=== PATIENT | female | born 1965 | race Caucasian/White ===

== ENCOUNTER 2016-09-20 10:06 | Outpatient (RCR) | payer OTHER ==
[~2016-09-20 10:06] MED LIST: ACTIGALL 300MG300 MG PO; HCTZ 25MG TAB25 MG PO; LEVAQUIN 5500 MG/TA1 PO; LIDODERM PATCH TP; NEURONTIN600 MG/TAB PO; NORCO 325 MG-7.1 TAB PO; PERCOCET 325 MG1 TA2 PO; PERCOCET 500 MG1 TAB PO; PREDNISONE10 MG PO; PRILOSEC 20MG20 MG PO; ZANTAC 150MG T150 MG PO
== END 2016-12-19 | disposition still patient (30) ==
LOC: WSOH
DX: M54.41 Lumbago with sciatica, right side (principal); M51.27 Other intervertebral disc displacement, lumbosacral region; M48.06 Spinal stenosis, lumbar region; Z98.84 Bariatric surgery status

== ENCOUNTER → 2018-06-19 | Outpatient (CLI) | payer MEDICAID | LOC: MHCPAIN 14:26 | DX: G89.29 Other chronic pain (principal); M47.817 Spondylosis without myelopathy or radiculopathy, lumbosacral region; M54.16 Radiculopathy, lumbar region; M53.3 Sacrococcygeal disorders, not elsewhere classified; M96.1 Postlaminectomy syndrome, not elsewhere classified | CPT/HCPCS: G0463 ==

== ENCOUNTER 2018-08-05 14:55 | Inpatient (IN) | payer MEDICAID ==
[~2018-08-05] VITALS: Ht 162.6 cm; Wt 99.5 kg
[2018-08-05 16:29] LABS: HEMOGLOBIN 11.2 g/dl (12.5-16.0); MEAN CELL VOLUME 100 fl (80.0-100.0); MEAN CORPUSCULAR HEMOGLOBIN 32 pg (27.0-31.0); MEAN CORPUSCULAR HGB CONC 32 g/dl (33.0-37.0); PLATELET COUNT 693 K/mm3 (130-400); RED BLOOD COUNT 3.52 M/mm3 (4.10-5.30); REDCELL DISTRIBUTION WIDTH-CV 13.7 % (11.5-14.5)
[2018-08-05 16:30] LABS: HEMATOCRIT 35.1 % (37.0-47.0)
[2018-08-05 16:40] LABS: ALANINE AMINOTRANSFERASE 16 U/L (9-52); ALBUMIN 3.7 gm/dL (3.5-5.0); ALKALINE PHOSPHATASE 103 U/L (50-136); ANION GAP 11 mmol/L (7-16); AST,SGOT 54 U/L (15-37); BILIRUBIN,TOTAL 0.2 mg/dL (0.0-1.0); BLOOD UREA NITROGEN 17 mg/dL (7-17); CALCIUM 9.5 mg/dL (8.4-10.2); CARBON DIOXIDE 25 mmol/L (22-30); CHLORIDE 107 mmol/L (98-107); CREATININE, serum 0.67 (0.52-1.25); GLUCOSE 88 mg/dL (74-106); POTASSIUM 3.4 mmol/L (3.4-5.0); SODIUM 143 mmol/L (137-145)
[2018-08-05 16:47] LABS: ANISOCYTOSIS 1+; BAND 3 % (0-10); EOSINOPHIL 2 % (0-4); LYMPHOCYTE 33 % (20.0-51.0); NEUTROPHILS 57 % (42.0-75.2); PLATELET ESTIMATE INCREASED (NORMAL)
[2018-08-05 16:52] LABS: TROPONIN-I < 0.012 ng/mL (0.000-0.035)
[2018-08-05] MEDS ORDERED: HCTZ12.5TAB PO (20:36)
[2018-08-05] MEDS ORDERED: TOPAMAX50 MG PO (20:37)
[2018-08-05] MEDS ORDERED: PROTONIX 40MG T40 MG PO (20:37)
[2018-08-05] MEDS ORDERED: COMPAZINE 110 MG/TAB PO (20:39)
[2018-08-05] MEDS ORDERED: NEURONTIN300 MG/CAP PO (20:39)
[2018-08-05] MEDS ORDERED: FLEXERIL 1010 MG/TAB PO (20:40)
[2018-08-05] MEDS ORDERED: LIPOFEN150 MG PO (20:40)
[2018-08-05] MEDS ORDERED: LIPITOR 40MG TA40 MG PO (20:42)
[2018-08-05] MEDS ORDERED: DESYREL 100MG100 MG PO (20:43)
[2018-08-05] MEDS ORDERED: CELEBREX 200MG200 MG PO (20:43)
[2018-08-05] MEDS ORDERED: EFFEXOR-XR150 MG PO (20:43)
[2018-08-05] MEDS ORDERED: TYLENOL 500MG500 MG PO (20:45)
[2018-08-05] MEDS ORDERED: TUSS PO (20:46)
[2018-08-05] MEDS ORDERED: NICODERM C21 MG/PATC TD (20:47)
[2018-08-05] MEDS ORDERED: WELLBUTRIN 75MG75 MG PO (20:47)
[2018-08-05] MEDS ORDERED: PROAIR HFA0.09 MG/AC IH (20:48)
[2018-08-05] MEDS ORDERED: 00186-0370-20 IH (20:48)
[2018-08-05] MEDS ORDERED: PREDNISONE10 MG PO (20:52)
--- NOTE | 2018-08-05 21:00 | NUR ---
Admitted to medical floor from ER with dx: ANNE MARIE herrera,, Justina WEN here to see pt, pt states pain 11/02--will give pain meds as ordered, VSS, IV fluids of NS at 125cc/hr, tele on. Up to bathroom on own- steady on feet.
[2018-08-05 21:17] VITALS: BP 130/75; PULSE 95; TEMP 98.7
[2018-08-05 22:51] LABS: ACETAMINOPHEN < 10 ug/mL (10-30); MAGNESIUM 2.4 mg/dL (1.6-2.3)
[2018-08-06 03:14] VITALS: BP 116/72; PULSE 104; TEMP 98.8
--- NOTE | 2018-08-06 05:40 | NUR ---
Did not sleep last night- sitting at edge of bed most of the night-has friend staying with her tonight, getting [place]/Dilaudid for left rib pain 11/02--sputum sent to lab, resp virus panel sent to lab also,, will be on Droplet isolation until results are back
[2018-08-06 06:22] LABS: HEMOGLOBIN 10.7 g/dl (12.5-16.0); MEAN CELL VOLUME 102 fl (80.0-100.0); MEAN CORPUSCULAR HEMOGLOBIN 32 pg (27.0-31.0); MEAN CORPUSCULAR HGB CONC 31 g/dl (33.0-37.0); MEAN PLATELET VOLUME 9.1 fl (7.4-10.4); PLATELET COUNT 637 K/mm3 (130-400); RED BLOOD COUNT 3.34 M/mm3 (4.10-5.30); REDCELL DISTRIBUTION WIDTH-CV 13.8 % (11.5-14.5)
[2018-08-06 06:25] LABS: HEMATOCRIT 34.2 % (37.0-47.0)
[2018-08-06 06:33] LABS: ALANINE AMINOTRANSFERASE 13 U/L (9-52); ALBUMIN 3.5 gm/dL (3.5-5.0); ALKALINE PHOSPHATASE 95 U/L (50-136); ANION GAP 10 mmol/L (7-16); AST,SGOT 22 U/L (15-37); BILIRUBIN,TOTAL < 0.1 mg/dL (0.0-1.0); BLOOD UREA NITROGEN 12 mg/dL (7-17); CALCIUM 8.8 mg/dL (8.4-10.2); CARBON DIOXIDE 26 mmol/L (22-30); CHLORIDE 107 mmol/L (98-107); CREATININE, serum 0.67 (0.52-1.25); GLUCOSE 101 mg/dL (74-106); POTASSIUM 3.9 mmol/L (3.4-5.0); SODIUM 142 mmol/L (137-145); TOTAL PROTEIN 6.7 gm/dL (6.4-8.2)
[2018-08-06 07:26] VITALS: BP 117/75; PULSE 92; TEMP 98
[2018-08-06 07:50] LABS: EOSINOPHIL 3 % (0-4); LYMPHOCYTE 33 % (20.0-51.0); NEUTROPHILS 55 % (42.0-75.2); PLATELET ESTIMATE INCREASED (NORMAL); POLYCHROMASIA 1+
[2018-08-06 07:51] LABS: STOMATOCYTE 1+
--- NOTE | 2018-08-06 08:04 | NUR ---
Received report from MAURO Solano.care assumed.
--- NOTE | 2018-08-06 09:55 | NUR ---
PRN DILAUDID AND PRN NORCO GIVEN TO RIB PAIN.PATIENT RATES PAIN AT 8/10.WILL CONTINUE TO MONITOR.CALL LIGHT IN REACH
[2018-08-06 11:41] VITALS: BP 123/79; PULSE 100; TEMP 98.3
--- NOTE | 2018-08-06 13:54 | NUR ---
HOSSEIN met with the patient and patient's step-daughter to discuss discharge plan. The patient lives in [place] with her son, Britton. She reports independence with ADLs and does not use any DME. The patient's PCP is Dr. Santana Montes and she receives her medications at the [facility] in [place]. She reports no difficulties obtaining her meds. The patient does not have advanced directives in EMR, but she states that she does have paperwork for it at home. The patient plans to return home upon discharge. No additional needs at this time.
[2018-08-06 15:48] VITALS: BP 125/76; PULSE 103; TEMP 98.4
--- NOTE | 2018-08-06 18:32 | NUR ---
AM ASSESSMENT COMPLETED AT APPROXIMATELY 0900. PATIENT SITTING UP IN BED EATING BREAKFAST. RPORTING LEFT SIDED CHEST PAIN FROM RIB FRACTURES. DENIES C/O SHORTNESS OF BREATHE. LUNG SOUNDS IN BILATERAL UPPER LOBES CTA. BILATERAL LOWER LOBES PRESENT WITH EXPIRATORY WHEEZING. MEDICATIONS ADMINISTERED ORDERED. DROPLET PRECAUTIONS IN PLACE PENDING RESPIRATORY PANEL RESULTS.
--- NOTE | 2018-08-06 18:37 | NUR ---
PATIENT CURRENTLY SITTING UP IN BED WATCHING TV. REQUESTING PAIN MEDICATION FOR C/O OF LEFT SIDED CHEST PAIN. MEDICATION PROVIDED. DENIES C/O OF SHORTNESS OF BREATHE OR OTHER COMPLAINTS. CONTINUED IN DROPLET PRECAUTIONS FOR RHINOVIRUS AND ENTEROVIRUS PER RESPIRATORY PANEL.
--- NOTE | 2018-08-06 18:50 | NUR ---
REPORT GIVEN TO MAURO KARIMI.
--- NOTE | 2018-08-06 18:50 | NUR ---
THIS RN REVIEWED MAURO CHEUTILITY WORKER FORGE AND AGREE WITH ABOVE FINDINGS.
[2018-08-06 19:15] VITALS: BP 140/74; PULSE 117; TEMP 98
--- NOTE | 2018-08-06 21:00 | NUR ---
pt resting in bed A+Ox4. reports 7/10 pain in left ribs, prn meds given on request. pt on 2L o2 via NC intermittently- when getting up to walk pt educated to plce O2 on. pt reports sligh relief with the dilaudid and norco. no reports no needs at this time. shift assessment complete. call light in reach.
[2018-08-06 22:52] VITALS: BP 105/54; PULSE 116; TEMP 98.6
--- NOTE | 2018-08-07 03:00 | NUR ---
PT HAD INSPIRATORY SQUEAKS END OF INSPIRATION. BS IMPROVED POST TX
[2018-08-07 03:24] VITALS: BP 121/67; BP 121/73; PULSE 79; PULSE 99; TEMP 97.3; TEMP 99
--- NOTE | 2018-08-07 05:16 | NUR ---
pt had an uneventful night. reports pain 7-8/10 onb pain scale, prn pain meds given on request. Pt on 2L NC when getting up for restroom. pt reports some SOA at times. IV flushes well, no pain, no swelling or redness. pt independent in room, steady gait. no needs at this time.
[2018-08-07 05:39] VITALS: BP 86/50
--- NOTE | 2018-08-07 06:44 | NUR ---
report given to MAURO sin. pt reports no needs at this time
--- NOTE | 2018-08-07 07:10 | NUR ---
report received from MAURO Rich.care assumed.
[2018-08-07 07:18] LABS: HEMOGLOBIN 10.9 g/dl (12.5-16.0); MEAN CELL VOLUME 103 fl (80.0-100.0); MEAN CORPUSCULAR HEMOGLOBIN 31 pg (27.0-31.0); MEAN CORPUSCULAR HGB CONC 31 g/dl (33.0-37.0); MEAN PLATELET VOLUME 9.2 fl (7.4-10.4); PLATELET COUNT 644 K/mm3 (130-400); RED BLOOD COUNT 3.47 M/mm3 (4.10-5.30); REDCELL DISTRIBUTION WIDTH-CV 13.9 % (11.5-14.5)
[2018-08-07 07:22] LABS: HEMATOCRIT 35.7 % (37.0-47.0)
[2018-08-07 07:29] LABS: CALCIUM 9.3 mg/dL (8.4-10.2); CREATININE, serum 0.6 (0.52-1.25); POTASSIUM 3.4 mmol/L (3.4-5.0)
[2018-08-07 07:55] LABS: LYMPHOCYTE 26 % (20.0-51.0); MYELOCYTE 1 % (0-0); NEUTROPHILS 62 % (42.0-75.2); PLATELET ESTIMATE INCREASED (NORMAL)
[2018-08-07 07:56] LABS: POLYCHROMASIA 1+
--- NOTE | 2018-08-07 11:00 | NUR ---
AM ASSESSMENT COMPLETED AT 0730. PATIENT SITTING UP ON SIDE OF BED. REPORTING C/O OF LEFT CHEST/RIB PAIN. SEE EMAR FOR MEDICATIONS ADMINISTERED ORDERED. DENIES C/O OF SHORTNESS OF BREATHE AT REST. RIGHT LOWER LOBES DIMISHED RIGHT UPPER CTA. LEFT LUNG ANDERSON CTA. PATIENT ENCOURAGED TO USE IS. ORDERING BREAKFAST AT END OF VISIT. DENIES NEEDS AT END OF VISIT.
[2018-08-07 13:19] VITALS: BP 134/88; PULSE 118; TEMP 98.8
--- NOTE | 2018-08-07 14:31 | NUR ---
The patient qualified for home oxygen and was in need of a nebulizer. HOSSEIN met with the patient to discuss DME options and presented and explained the patient choice form. The patient chose [facility]. Patient choice form signed by the patient and she was provided a copy. HOSSEIN contacted and emailed the patient's order to Tara at [facility].
[2018-08-07] MEDS ORDERED: ALBUTEROL0.83 MG/ML IH (14:50)
[2018-08-07] MEDS ORDERED: NORCO 325 MG-51 TAB PO (14:51)
[2018-08-07] MEDS ORDERED: MUCUS RELIEF200 MG PO (14:52)
[2018-08-07] MEDS ORDERED: TYLENOL 325MG325 MG PO (14:52)
[2018-08-07] MEDS ORDERED: PREDNISONE10 MG PO (14:56)
--- NOTE | 2018-08-07 15:28 | NUR ---
[facility] is able to fill the patient's order. 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 No additional needs at this time.
--- NOTE | 2018-08-07 16:15 | NUR ---
PATIENT DC TO HOME @ 1610 ACCOMPANIED BY DAUGHTER BALLER TENDER. PRINTED DC INSTRUCTIONS WITH FOLLOW UP APPOINTMENTS AND MEDICATION LIST REVIEWED WITH PATIENT. VERBALIZES UNDERSTANDING AND DENIES QUESTIONS OR CONCERNS AFTER REVIEW. PRINTED SCRIPTS FOR HYDROCODONE, PRDNISONE, MUCUS RELIEF, AND ALBUTEROL SENT WITH PATIENT.
--- NOTE | 2018-08-07 17:45 | NUR ---
THIS RN REVIEWED ABOVE FINDINGS BY MAURO CHE AND AGREES WITH ALL ABOVE.
[2018-08-09 14:27] LABS: ANGIOTENSIN CONVERTING ENZYME 22 U/L (16 - 85)
[2018-08-09 19:53] LABS: C-ANCA 18 U/mL (0-99)
== END 2018-08-07 16:15 | disposition home or self-care (01) | DRG 190 ==
LOC: COL.ER 14:55 → MEDICAL 17:25
PROVIDERS: Emergency Medicine; Internal Medicine; Internal Medicine Pulmonary Disease; Nurse Practitioner Family; ADMIT Internal Medicine
DX: J44.1 Chronic obstructive pulmonary disease with (acute) exacerbation (principal); J96.01 Acute respiratory failure with hypoxia; J84.9 Interstitial pulmonary disease, unspecified; I27.0 Primary pulmonary hypertension; M80.00XA Age-related osteoporosis with current pathological fracture, unspecified site, initial encounter for fracture; B97.89 Other viral agents as the cause of diseases classified elsewhere; E78.5 Hyperlipidemia, unspecified; E66.9 Obesity, unspecified; K21.9 Gastro-esophageal reflux disease without esophagitis; E11.9 Type 2 diabetes mellitus without complications; I10 Essential (primary) hypertension; T39.1X1A Poisoning by 4-Aminophenol derivatives, accidental (unintentional), initial encounter; Y92.9 Unspecified place or not applicable; G43.909 Migraine, unspecified, not intractable, without status migrainosus; F17.210 Nicotine dependence, cigarettes, uncomplicated; D64.9 Anemia, unspecified; G89.29 Other chronic pain; M54.9 Dorsalgia, unspecified; M19.90 Unspecified osteoarthritis, unspecified site; F32.9 Major depressive disorder, single episode, unspecified; D47.3 Essential (hemorrhagic) thrombocythemia; E87.6 Hypokalemia; Z98.84 Bariatric surgery status; Z79.891 Long term (current) use of opiate analgesic; Z79.52 Long term (current) use of systemic steroids; Z87.01 Personal history of pneumonia (recurrent)
CPT/HCPCS: 99222-AI; 99239; A9284; J1170; J1650; J1956; J2270; J7030; J7512; Q9967

== ENCOUNTER → 2018-10-24 | Outpatient (CLI) | payer MEDICAID ==
[~2018-10-24] MED LIST changes: +00186-0370-20 IH; +ALBUTEROL0.83 MG/ML IH; +CELEBREX 200MG200 MG PO; +COMPAZINE 110 MG/TAB PO; +DESYREL 100MG100 MG PO; +EFFEXOR-XR150 MG PO; +FLEXERIL 1010 MG/TAB PO; +HCTZ12.5TAB PO; +LIPITOR 40MG TA40 MG PO; +LIPOFEN150 MG PO; +MUCUS RELIEF200 MG PO; +NEURONTIN300 MG/CAP PO; +NICODERM C21 MG/PATC TD; +NORCO 325 MG-51 TAB PO; +PROAIR HFA0.09 MG/AC IH; +PROTONIX 40MG T40 MG PO; +TOPAMAX50 MG PO; +TUSS PO; +TYLENOL 325MG325 MG PO; +TYLENOL 500MG500 MG PO; +WELLBUTRIN 75MG75 MG PO
== END ==
LOC: COL.VAS 10-21 10:15
DX: R06.02 Shortness of breath (principal)

== ENCOUNTER 2018-12-17 16:00 | Outpatient (RCR) | payer MEDICAID | END 2019-01-21 | disposition still patient (30) | LOC: WSC | DX: M54.5 Low back pain (principal) ==

== ENCOUNTER 2018-12-19 14:14 | Emergency (ER) | payer MEDICAID ==
[~2018-12-19] VITALS: Ht 162.6 cm; Wt 96.8 kg
[2018-12-19 14:14] VITALS: BP 117/89; TEMP 97.8
[2018-12-19 16:15] VITALS: PULSE 89
== END 2018-12-19 16:15 | disposition home or self-care (01) ==
LOC: COL.ER 14:14
DX: R07.89 Other chest pain (principal); K21.9 Gastro-esophageal reflux disease without esophagitis; F17.210 Nicotine dependence, cigarettes, uncomplicated; Z98.84 Bariatric surgery status

== ENCOUNTER → 2019-01-30 | Outpatient (CLI) | payer MEDICAID ==
[~2019-01-30] MED LIST changes: +CHANTIX 1MG1 MG PO; +LYRICA 75MG CAP75 MG PO
== END ==
LOC: COL.RAD 12:09
DX: M51.16 Intervertebral disc disorders with radiculopathy, lumbar region (principal); M48.061 Spinal stenosis, lumbar region without neurogenic claudication

== ENCOUNTER 2019-01-31 15:29 | Outpatient (CLI) | payer MEDICAID ==
[~2019-01-31] VITALS: Ht 162.6 cm; Wt 97.0 kg
[~2019-01-31 15:29] MED LIST changes: -CHANTIX 1MG1 MG PO; -LYRICA 75MG CAP75 MG PO
[2019-01-31 16:35] VITALS: BP 116/70; PULSE 89; TEMP 98.2
[2019-01-31] MEDS ORDERED: CHANTIX 1MG1 MG PO (16:48)
[2019-01-31] MEDS ORDERED: LYRICA 75MG CAP75 MG PO (16:49)
== END 2019-01-31 17:45 | disposition home or self-care (01) ==
LOC: EUO 15:29
DX: M81.0 Age-related osteoporosis without current pathological fracture (principal)
CPT/HCPCS: J3489

== ENCOUNTER → 2019-03-03 | Outpatient (CLI) | payer MEDICAID ==
--- NOTE | 2019-02-26 14:09 | NUR ---
LMOM WITH DATE,TIME AND CALL BACK NUMBER
[~2019-03-03] VITALS: Ht 162.6 cm; Wt 98.5 kg
[~2019-03-03] MED LIST changes: +CHANTIX 1MG1 MG PO; +LYRICA 75MG CAP75 MG PO
[2019-03-03 11:37] VITALS: BP 152/95; PULSE 97
[2019-03-03 12:30] VITALS: BP 128/88; PULSE 101
--- NOTE | 2019-03-03 12:50 | NUR ---
Discharge instructions gone over with pt. Verbalized understanding of instructions. Copy given to pt. pt out to await taxi for ride home. Pt able to walk without difficulty. Numbness to buttock is decreased.
== END ==
LOC: COL.RAD 11:05
DX: M51.17 Intervertebral disc disorders with radiculopathy, lumbosacral region (principal)
CPT/HCPCS: J3301

== ENCOUNTER → 2019-05-06 | Outpatient (CLI) | payer MEDICAID | LOC: MHCPAIN 15:19 | DX: M53.3 Sacrococcygeal disorders, not elsewhere classified (principal); M47.817 Spondylosis without myelopathy or radiculopathy, lumbosacral region; F17.210 Nicotine dependence, cigarettes, uncomplicated | CPT/HCPCS: G0463 ==

== ENCOUNTER 2020-08-18 15:05 | Outpatient (CLI) | payer MEDICAID ==
[~2020-08-18] VITALS: Ht 162.6 cm; Wt 97.3 kg
[2020-08-18 15:54] VITALS: BP 114/77; PULSE 94; TEMP 98
[2020-08-18] MEDS ORDERED: ATROVENT I0.2 MG/1 M IH (15:58)
[2020-08-18] MEDS ORDERED: MOBIC15 MG PO (16:02)
[2020-08-18] MEDS ORDERED: XANAX 0.5MG0.5 MG PO (16:02)
== END 2020-08-18 16:21 | disposition home or self-care (01) ==
LOC: EUO 15:05
DX: M81.0 Age-related osteoporosis without current pathological fracture (principal); Z79.899 Other long term (current) drug therapy
CPT/HCPCS: J3489

== ENCOUNTER → 2020-08-20 | Outpatient (CLI) | payer MEDICAID ==
[~2020-08-20] MED LIST changes: +ATROVENT I0.2 MG/1 M IH; +MOBIC15 MG PO; +XANAX 0.5MG0.5 MG PO
== END ==
LOC: COL.VAS 13:57
DX: I35.1 Nonrheumatic aortic (valve) insufficiency (principal)